=== PATIENT | male | born 1960 | race Caucasian/White ===

== ENCOUNTER 2022-01-26 14:58 | Emergency (ER) | payer OTHER ==
[2022-01-26 15:10] VITALS: BP 140/85; PULSE 66; RESP 16; TEMP 99; BMI 28.8
[2022-01-26 15:45] LABS: URINE MUCUS 2+
[2022-01-26] MEDS ORDERED: KETOROLAC TROMETHAMINE 15 MG/ML VIAL IM ONE (15:50)
[2022-01-26] MEDS ORDERED: KETOROLAC TROMETHAMINE 15 MG/ML VIAL ONE ×2 (16:03→16:43)
[2022-01-26] MEDS ORDERED: KETOROLAC TROMETHAMINE 30 MG/1 ML VIAL IM ONE (16:40)
== END 2022-01-26 16:48 | disposition home or self-care (01) ==
LOC: FER 14:58
PROC: 3E0233Z Introduction of Anti-inflammatory into Muscle, Percutaneous Approach (ICD-10-PCS; principal; 2022-01-26)
PROC: 3E0233Z Introduction of Anti-inflammatory into Muscle, Percutaneous Approach (ICD-10-PCS; 2022-01-26)
DX: R10.2 Pelvic and perineal pain (principal)
CPT/HCPCS: 81003; 81015; 87086; 99284-25